=== PATIENT | female | born 1985 | race Two or more races ===

== ENCOUNTER 2019-05-28 13:56 | Emergency (ER) | payer OTHER ==
[2019-05-28 14:29] LABS: Hematocrit 36 % (35-47); Hemoglobin 12.1 g/dL (12.0-16.0); Mean Corpuscular HGB Conc 33 g/dL (31-36); Mean Corpuscular Hemoglobin 28 pg (27-31); Mean Corpuscular Volume 85 fL (80-97); Mean Platelet Volume 7.7 fL (7.4-10.4); Platelet Count 440 10^3/uL (150-450); Red Cell Distribution Width 15 % (10-15); White Blood Count 10.3 10^3/uL (3.5-10.8)
--- NOTE | 2019-05-28 15:04 | ED ---
- HPI Summary HPI Summary: Patient is a 34yo presenting to the ED with concern for miscarriage. States today she had some spotting with abd tenderness. Denies abd tenderness currently. Spotting was today and she quantifies this has light with on clots. Denies dizziness, [place], etc. No hx of spontaneous abortions. No hx of vaginal bleeding with her 2 other children. She is currently 6.5 weeks based on LMP and home preg test. First OBGYN appt next month. Denies cough, congestion, fevers, sweats, chills. Denies any weakness. - History of Current Complaint Chief Complaint: EDOBProblems Stated Complaint: 6 WEEKS PREG BLEEDING Time Seen by Provider: 05/28/19 13:57 Hx Obtained From: Patient Onset/Duration: Started Hours Ago Timing: Constant Severity: Moderate Current Severity: Moderate Pain Intensity: 0 Location of Pain: Diffuse Character: Cramping Associated Signs and Symptoms: Positive: Negative - Allergies/Home Medications Allergies/Adverse Reactions: Allergies Allergy/AdvReac Type Severity Reaction Status Date / Time shellfish derived Allergy Swelling Verified 05/28/19 14:03 Of Face,Lips,& Throat Home Medications: Home Medications Acetaminophen TAB* [Tylenol TAB*] 325 mg PO Q4H PRN 05/28/19 [History Confirmed 05/28/19] Pnv No.95/Ferrous Fum/Folic AC [ Vitamin & Minera 28-0.8 mg] 1 tab PO DAILY 05/28/19 [History Confirmed 05/28/19] PMH/Surg Hx/FS Hx/Imm Hx Previously Healthy: Yes - Immunization History Hx Pertussis Vaccination: No Immunizations Up to Date: Yes Infectious Disease History: No Infectious Disease History: Denies: Traveled Outside the [place] in Last 30 Days - Social History Occupation: Employed Full-time Lives: With Family Alcohol Use: None Hx Substance Use: No Substance Use Type: Reports: None Hx Tobacco Use: Yes Smoking Status (MU): Light Every Day Tobacco Smoker Review of Systems Negative: Fever, Chills, Fatigue, Skin Diaphoresis Negative: Palpitations, Chest Pain Negative: Shortness Of Breath, Cough Positive: Abdominal Pain Positive: see HPI, other - spotting Negative: Arthralgia, Myalgia Skin: Negative All Other Systems Reviewed And Are Negative: Yes Physical Exam - Physical Exam Triage Information Reviewed: Yes Vital Signs Reviewed: Yes Appearance: Positive: Well-Appearing, Well-Nourished Skin: Positive: Warm, Skin Color Reflects Adequate Perfusion Head/Face: Positive: Normal Head/Face Inspection Eyes: Positive: EOMI, SIDNEY, Conjunctiva Clear Neck: Positive: Supple, No Lymphadenopathy Respiratory/Lung Sounds: Positive: Clear to Auscultation, Breath Sounds Present Cardiovascular: Positive: RRR, Pulses are Symmetrical in both Upper and Lower Extremities Bowel Sounds: Positive: Present Neurological: Positive: Sensory/Motor Intact, Alert, Oriented to Person Place, Time, Speech Normal Psychiatric: Positive: Affect/Mood Appropriate AVPU Assessment: Alert Procedures - Sedation Patient Received Moderate/Deep Sedation with Procedure: No Diagnostics - Vital Signs Vital Signs Temp Pulse Resp BP Pulse Ox 05/28/19 14:01 98.5 F 72 18 127/75 94 - Laboratory Lab Results: Lab Results 05/28/19 05/28/19 05/28/19 Range/Units 14:15 14:15 14:15 WBC 10.3 (3.5-10.8) 10^3/uL RBC 4.30 (3.70-4.87) 10^6 /uL Hgb 12.1 (12.0-16.0) g/dL Hct 36 (35-47) % MCV 85 (80-97) fL MCH 28 (27-31) pg MCHC 33 (31-36) g/dL RDW 15 (10-15) % Plt Count 440 (150-450) 10^3/uL MPV 7.7 (7.4-10.4) fL Beta HCG, Quant 668.72 mIU/mL Blood Type B Positive Antibody Screen Negative Result Diagrams: 05/28/19 14:15 Lab Statement: Any lab studies that have been ordered have been reviewed, and results considered in the medical decision making process. Course/Dx - Course Course Of Treatment: Labs obtained with a type and screen. Patient appears well. Denies any vaginal bleeding currently. Denies any abdominal tenderness throughout. Lungs are CTA, RRR. Transvaginal ultrasound obtained: A suspected intrauterine gestational sac within AUA of 4 weeks and 6 days. HCG trending may be helpful. Leiomyoma uterus. Discussed results with patient. No bleeding. - Differential Diagnosis/HQI/PQRI: Threatened , Vaginal Bleeding - Diagnoses Provider Diagnoses: Vaginal bleeding affecting early Discharge ED - Sign-Out/Discharge Documenting (check all that apply): Patient Departure - Discharge Plan Condition: Stable Disposition: HOME Patient Education Materials: (ED) Referrals: No Primary Care Phys,NOPCP [Primary Care Provider] - Additional Instructions: HCG = 668. 4 weeks and 6 days. - Billing Disposition and Condition Condition: STABLE Disposition: Home
[2019-05-28 17:21] VITALS: BP 103/69
== END 2019-05-28 17:21 | disposition home or self-care (01) ==
LOC: ED 13:56
DX: O20.9 Hemorrhage in early pregnancy, unspecified (principal); Z3A.01 Less than 8 weeks gestation of pregnancy; O99.331 Smoking (tobacco) complicating pregnancy, first trimester; F17.200 Nicotine dependence, unspecified, uncomplicated; D25.9 Leiomyoma of uterus, unspecified
CPT/HCPCS: 36415; 76817; 84702; 85027; 86850; 86900; 86901; 99283